=== PATIENT | female | born 1990 | race Caucasian/White ===

== ENCOUNTER → 2023-05-26 | Outpatient (CLI) | payer BC ==
[2023-06-04 12:26] LABS: HPV GENOTYPE 16 Detected; HPV GENOTYPE 18 Not Detected; HPV HIGH RISK Detected; HPV SOURCE Cervical
== END ==
LOC: LAB SHORT 13:25 → LAB 13:25
PROVIDERS: Registered Nurse Community Health
DX: Z12.4 Encounter for screening for malignant neoplasm of cervix (principal)
CPT/HCPCS: 87624; G0123